=== PATIENT | female | born 1940 | race Caucasian/White ===

== ENCOUNTER 2016-11-28 07:45 | Day surgery (SDC) | payer MEDICARE ==
[~2016-11-28] VITALS: Ht 167.6 cm; Wt 81.6 kg
--- NOTE | ~2016-11-28 | EGD ---
EGD REPORT [facility] [address] [address] NAME: CABRERA ARCINIEGA : 42 STATUS : REG [facility]#: [id number] AGE: 76 ADM/REG DATE : 11/28/16 MR#: [id number] REPORT SERV DATE: 11/28/16 DICTATED BY: JAY OBREGON DATE: 11/28/16 REPORT STATUS : Draft TRANSCRIBED BY: [employer] DATE: 11/28/16 [facility] Center Patient Name: Cabrera Arciniega Date of : 1940 Attending MD: JYA OBREGON MD Procedure Date No Time: 11/28/2016 Procedure: Upper GI endoscopy Indications: Dyspepsia, Dysphagia Referring MD: PAULA PEARCE Medicines: Propofol per Anesthesia Complications: No immediate complications. Procedure: Pre-Anesthesia Assessment: - ASA Grade Assessment: III - A patient with severe systemic disease. After obtaining informed consent, the endoscope was passed under direct vision. Throughout the procedure, the patient's blood pressure, pulse, and oxygen saturations were monitored continuously. The GIF [id number] was introduced through the mouth, and advanced to the second part of duodenum. The upper GI endoscopy was accomplished without difficulty. The patient tolerated the procedure well. The upper GI endoscopy was accomplished without difficulty. The patient tolerated the procedure well. Findings: The examined esophagus was normal. Diffuse mild inflammation characterized by erosions and erythema was found in the stomach. Biopsies were taken with a cold forceps for histology. The examined duodenum was normal. Impression: - Normal esophagus. - Chronic gastritis. Biopsied. - Normal examined duodenum. Recommendation: - Patient has a contact number available for emergencies. The signs and symptoms of potential delayed complications were discussed with the patient. Return to normal activities tomorrow. Written discharge instructions were provided to the patient. - Regular diet. - Patient has a contact number available for emergencies. The signs and symptoms of potential delayed complications were discussed with the patient. Return to EGD REPORT [facility] [address] [place] [address]. [id number] NAME: CABRERA ARCINIEGA : 42 STATUS : REG [facility] PAT#: [id number] AGE: 76 ADM/REG DATE : 11/28/16 MR#: [id number] REPORT SERV DATE: 11/28/16 DICTATED BY: JAY OBREGON. DATE: 11/28/16 REPORT STATUS : Draft TRANSCRIBED BY: [employer] DATE: 11/28/16 normal activities tomorrow. Written discharge instructions were provided to the patient. - Continue present medications. Procedure Code(s): --- Professional --- 65685, Esophagogastroduodenoscopy, flexible, transoral; with biopsy, single or multiple Diagnosis Code(s): --- Professional --- K29.50, Unspecified chronic gastritis without bleeding K30, Functional dyspepsia R13.10, Dysphagia, unspecified CPT copyright 2013 [employer]. All rights reserved. The codes documented in this report are preliminary and upon assembler product review may be revised to meet current compliance requirements. Jay Obregon MD JAY OBREGON MD 11/28/2016 8:47 AM This report has been signed electronically. Number of Addenda: 0 Note Initiated On: 11/28/2016 8:38 AM Scope Withdrawal Time 0 hours 0 minutes 0 seconds [address] [place] [address]
--- NOTE | ~2016-11-28 | EGD ---
EGD REPORT [facility] [address] [address] NAME: CABRERA ARCINIEGA : 42 STATUS : REG [facility]#: [id number] AGE: 76 ADM/REG DATE : 11/28/16 MR#: [id number] REPORT SERV DATE: 11/28/16 DICTATED BY: JAY OBREGON DATE: 11/28/16 REPORT STATUS : Draft TRANSCRIBED BY: [employer] DATE: 11/28/16 [facility] Center Patient Name: Cabrera Arciniega Date of : 1940 Attending MD: JAY OBREGON MD Procedure Date No Time: 11/28/2016 Procedure: Colonoscopy Indications: Personal history of colonic polyps Referring MD: PAULA PEARCE Medicines: Propofol per Anesthesia Complications: No immediate complications. Procedure: Pre-Anesthesia Assessment: - ASA Grade Assessment: III - A patient with severe systemic disease. After I obtained informed consent, the scope was passed under direct vision. Throughout the procedure, the patient's blood pressure, pulse, and oxygen saturations were monitored continuously. The CF [id number] was introduced through the anus and advanced to the cecum, identified by appendiceal orifice and ileocecal valve. The colonoscopy was performed without difficulty. The patient tolerated the procedure well. The quality of the bowel preparation was good. Findings: The perianal and digital rectal examinations were normal. Many medium-mouthed diverticula were found in the recto-sigmoid colon, in the sigmoid colon and in the descending colon. Internal hemorrhoids were found during retroflexion and were Grade I (internal hemorrhoids that do not prolapse). The rest of the colon was normal. Impression: - Diverticulosis in the recto-sigmoid colon, in the sigmoid colon and in the descending colon. - Internal hemorrhoids. Recommendation: - Patient has a contact number available for emergencies. The signs and symptoms of potential delayed complications were discussed with the patient. Return to normal activities tomorrow. Written discharge instructions were provided to the patient. - Regular diet. - Patient has a contact number available for emergencies. The signs and symptoms of potential delayed complications were discussed with the patient. Return to EGD REPORT [address] [address] NAME: CABRERA ARCINIEGA : 42 STATUS : [place] [facility] PAT#: [id number] AGE: 76 ADM/REG DATE : 11/28/16 MR#: [id number] REPORT SERV DATE: 11/28/16 DICTATED BY: JAY OBREGON. DATE: 11/28/16 REPORT STATUS : Draft TRANSCRIBED BY: [employer] DATE: 11/28/16 normal activities tomorrow. Written discharge instructions were provided to the patient. - Continue present medications. Miralax 17 gms in 8 oz of water bid. Procedure Code(s): --- Professional --- 27292, Colonoscopy, flexible, proximal to splenic flexure; diagnostic, with or without collection of specimen(s) by brushing or washing, with or without colon decompression (separate procedure) Diagnosis Code(s): --- Professional --- K64.0, First degree hemorrhoids K57.30, Diverticulosis of large intestine without perforation or abscess without bleeding Z86.010, Personal history of colonic polyps CPT copyright 2013 [employer]. All rights reserved. The codes documented in this report are preliminary and upon water engineer review may be revised to meet current compliance requirements. Jay Obregon MD JAY OBREGON MD 11/28/2016 9:05 AM This report has been signed electronically. Number of Addenda: 0 Note Initiated On: 11/28/2016 8:31 AM Scope Withdrawal Time 0 hours 8 minutes 16 seconds [address] [place] [address]
[~2016-11-28 07:45] MED LIST: COZ25 PO; FOSAMAX70 MG PO; GENERLAC PO; IBU400 PO; LEXAPRO10 PO; LIPITOR10 PO; MULTI-VIT HP PO; NEXIUM40 PO; NORV10 PO; SINGULAIR1 PO; SYMBICORT 160/41 INH INH; VITD PO; ZYRTEC ALLGY10 MG PO
== END 2016-11-28 23:59 | disposition home or self-care (01) ==
LOC: DMU 07:45
PROVIDERS: Internal Medicine Gastroenterology
PROC: 0DB68ZX Excision of Stomach, Via Natural or Artificial Opening Endoscopic, Diagnostic (ICD-10-PCS; principal; 2016-11-28 08:30)
PROC: 0DJD8ZZ Inspection of Lower Intestinal Tract, Via Natural or Artificial Opening Endoscopic (ICD-10-PCS; 2016-11-28 08:30)
DX: K29.50 Unspecified chronic gastritis without bleeding (principal); K57.30 Diverticulosis of large intestine without perforation or abscess without bleeding; K64.0 First degree hemorrhoids; I10 Essential (primary) hypertension; J45.909 Unspecified asthma, uncomplicated; F41.9 Anxiety disorder, unspecified; Z79.82 Long term (current) use of aspirin; Z96.653 Presence of artificial knee joint, bilateral; Z86.010 Personal history of colon polyps; Z88.0 Allergy status to penicillin; Z88.2 Allergy status to sulfonamides; Z79.899 Other long term (current) drug therapy; Z98.890 Other specified postprocedural states
CPT/HCPCS: 88305; 88342